=== PATIENT | female | born 1980 | race Caucasian/White ===

== ENCOUNTER 2017-06-07 10:13 | Outpatient (CLI) | payer BC | END 2017-06-07 10:14 | disposition home or self-care (01) | LOC: BICULT 10:13 | PROVIDERS: ATTEND Internal Medicine Gastroenterology | DX: E80.6 Other disorders of bilirubin metabolism (principal); R10.11 Right upper quadrant pain; K76.89 Other specified diseases of liver | CPT/HCPCS: 76705 ==

== ENCOUNTER 2017-07-05 09:18 | Outpatient (CLI) | payer BC ==
[~2017-07-05 09:18] MED LIST: Gadobenate Dimeglumine 529 MG/1 ML (20ML VIAL) ONE
--- NOTE | 2017-07-05 11:13 | MRI ---
MRI ABDOMEN WITH AND WITHOUT IV CONTRAST: HISTORY: Liver lesion. FINDINGS: Correlation is made with the ultrasound dated 06/07/[address] [facility]. There are 2 lesions in the right lobe of the liver measuring 1 cm and 1.5 cm respectively with low T1 , high T2 signal and postcontrast centripetal swelling, consistent with hemangiomas. The spleen, jeffers creas, and adrenal glands appear normal. Tiny nonenhancing lesions with low T1 and high T2 signal ar e seen in the kidneys consistent with tiny cysts. No gallstones are identified. No free fluid or ly mphadenopathy is seen in the abdomen. There are bilateral breast implants. IMPRESSION: 1. Liver hemangiomas. 2. Tiny renal cysts. POS: H
== END 2017-07-05 09:19 | disposition home or self-care (01) ==
LOC: MRI 09:18
PROVIDERS: ATTEND Internal Medicine Gastroenterology
DX: K76.9 Liver disease, unspecified (principal); N28.1 Cyst of kidney, acquired
CPT/HCPCS: 74183; A9579

== ENCOUNTER 2021-03-24 10:14 | Outpatient (CLI) | payer BC | END 2021-03-24 10:15 | disposition home or self-care (01) | LOC: BICMAMMO 10:14 | DX: Z12.31 Encounter for screening mammogram for malignant neoplasm of breast (principal); Z98.82 Breast implant status | CPT/HCPCS: 77063; 77067 ==

== ENCOUNTER 2021-06-17 14:31 | Outpatient (CLI) | payer BC | END 2021-06-17 14:32 | disposition home or self-care (01) | LOC: SCSMRI 14:31 | PROVIDERS: ATTEND Specialist | DX: R51.9 Headache, unspecified (principal); R20.0 Anesthesia of skin; R20.2 Paresthesia of skin; H21.561 Pupillary abnormality, right eye; Z80.8 Family history of malignant neoplasm of other organs or systems | CPT/HCPCS: 70553; 82565 ==

== ENCOUNTER 2023-11-30 09:05 | Outpatient (CLI) | payer BC | END 2023-11-30 09:06 | disposition home or self-care (01) | LOC: BICMAMMO 09:05 | PROVIDERS: ATTEND Obstetrics & Gynecology | DX: Z12.31 Encounter for screening mammogram for malignant neoplasm of breast (principal); Z98.82 Breast implant status | CPT/HCPCS: 77063; 77067 ==